=== PATIENT | female | born 1995 | race American Indian/Alaskan Native ===

== ENCOUNTER 2022-03-22 01:38 | Emergency (ER) | payer MEDICAID ==
[2022-03-24 08:12] LABS: CHLAMYDIA TRACHOMATIS, NAA Negative (Negative); NEISSERIA GONORRHOEAE, NAA Positive (Negative)
== END 2022-03-22 02:15 | disposition home or self-care (01) ==
LOC: JP.ED 01:38
DX: A64 Unspecified sexually transmitted disease (principal)
CPT/HCPCS: 87491; 87591; 99281; 99283